=== PATIENT | male | born 1960 | race Caucasian/White ===

== ENCOUNTER 2016-12-07 13:23 | Emergency (ER) | payer OTHER | END 2016-12-07 14:32 | disposition home or self-care (01) | LOC: ER1 13:23 | DX: S80.861A Insect bite (nonvenomous), right lower leg, initial encounter (principal); L03.115 Cellulitis of right lower limb; F17.210 Nicotine dependence, cigarettes, uncomplicated; Z88.0 Allergy status to penicillin; Z88.1 Allergy status to other antibiotic agents; Z88.8 Allergy status to other drugs, medicaments and biological substances; W57.XXXA Bitten or stung by nonvenomous insect and other nonvenomous arthropods, initial encounter | CPT/HCPCS: 99283 ==

== ENCOUNTER → 2017-02-10 | Outpatient (CLI) | payer OTHER | LOC: RAD 09:30 | DX: M54.5 Low back pain (principal); K59.00 Constipation, unspecified; M47.896 Other spondylosis, lumbar region | CPT/HCPCS: 72100 ==